=== PATIENT | male | born 1980 | race Caucasian/White ===

== ENCOUNTER 2022-01-14 22:50 | Emergency (ER) | payer MEDICARE, SELFPAY ==
[2022-01-14 22:51] VITALS: BP 157/108; PULSE 91; RESP 18; TEMP 35.8; O2SAT 98; BMI 36.3
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
[2022-01-15 00:18] VITALS: BP 147/103; PULSE 78; RESP 16; O2SAT 98
[2022-01-15 00:57] LABS: Anion Gap 8 (5-15); BUN 19 mg/dL (7-18); BUN/Creat Ratio 19.3 RATIO (10-20); Calcium,Total 8.7 mg/dL (8.5-10.1); Chloride 106 mmol/L (98-107); Creatinine, Serum 0.98 mg/dL (0.70-1.30); EST Glomerular Filtration Rate 89 mL/min (>60); Est Glom Filt Rate - Afr Amer 107 mL/min (>60); Estimated Creatinine Clearance 107.78 ml/min; Glucose 127 mg/dL (74-106); Potassium 3.8 mmol/L (3.5-5.1); Sodium Level 139 mmol/L (136-145)
[2022-01-15] MEDS: Lisinopril 20 MG Tablet PO (01:26)
[2022-01-15 01:35] VITALS: BP 143/97; PULSE 73; RESP 16; O2SAT 98
== END 2022-01-15 01:38 | disposition home or self-care (01) ==
PROVIDERS: Emergency Provider Emergency Medicine; Visit Provider Emergency Medicine
DX: R03.0 Elevated blood-pressure reading, without diagnosis of hypertension (principal); R73.9 Hyperglycemia, unspecified; Z79.899 Other long term (current) drug therapy
CPT/HCPCS: 80048; 99283

== ENCOUNTER 2022-04-14 22:10 | Emergency (ER) | payer MEDICARE, SELFPAY ==
[2022-04-14 22:11] VITALS: BP 179/116; PULSE 87; RESP 16; TEMP 36.7; O2SAT 97; BMI 37.4
[2022-04-14 23:05] VITALS: BP 155/100
[2022-04-14] MEDS: cloNIDine HCl 0.1 MG Tablet 0.2 MG PO (23:37)
[2022-04-15 00:41] VITALS: BP 152/99; PULSE 75; RESP 15; O2SAT 97
--- NOTE | 2022-04-15 00:41 | EDS_ITS ---
HPI History of Present Illness Chief Complaint: Hypertension Informant: patient Narrative Narrative: Patient presents with his blood pressure up again. He states when his blood pressure goes up he will get some pressure in the head. He states he really does not get dizziness that is really just the blood pressure and pressure feeling in his head. He states sometimes he almost feels short of breath. But he has been exercising regularly. He states if his blood pressure is up and he feels short of breath he can go jog on the treadmill and that actually resolves his symptoms. He does not get chest pain. I find out that he was on amlodipine. But it sounds like he would take it and then stop intermittently because he does not like being on meds. This was increased from 5-10. It was still not controlling his symptoms. He was switched to lisinopril. 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 He also would take this for 3 4 5 days and then stop for couple days. He feels he needs to get on another medicine. He is not due to be back in [place] and see his primary physician until next weekend. He would like to start something pending that. At this time he feels good. But when his blood pressure goes way up he has problems. He states it has been up more recently because its been very stressful at work. He also does have anxiety for which she takes Prozac. This was increased from 20 to 40 mg a day. Patient has been trying to exercise more. He states when he exercise he actually feels very good. He has been trying to cut back on junk food. But it sounds like he also has not been taking blood pressure medicines daily consistently. [facility] Medical History HTN (hypertension) Home Medications lisinopril 20 mg tablet 20 mg PO DAILY #30 tabs 01/15/22 [Rx Last Taken Unknown] valsartan 40 mg tablet 40 mg PO BID #60 tabs 04/15/22 [Rx Last Taken Unknown] Allergy/AdvReac Type Severity Reaction Status Date / Time No Known Allergies Allergy Verified 04/14/22 22:11 Social History Smoking Status: Never smoker ROS ROS ED Constitutional Constitutional ED: Denies chills or fever(s) Eyes Eyes: Denies blurry vision or change in vision ENT ENT ED: Denies rhinorrhea or sore throat Cardiovascular Cardiovascular: Denies chest pain, palpitations or racing heartbeat Respiratory/Chest Respiratory/Chest: Reports dyspnea; Denies cough Gastrointestinal Gastrointestinal: Denies abdominal pain, nausea or vomiting Genitourinary Genitourinary ED: Denies dysuria Musculoskeletal Musculoskeletal: Denies arthralgias, back pain or myalgias Neurologic Neurologic: Reports headache(s); Denies paresthesias or weakness Endocrine Endocrinology: Denies polydipsia or polyuria Hematologic/Lymphatic Hematologic/Lymphatic: Denies easy bleeding or easy bruising Allergic/Immunologic Allergic/Immunologic ED: Denies urticaria EXAM Physical Exam Const Vital Signs: 04/14/22 22:11 04/14/22 22:20 04/14/22 23:05 Temperature 98.1 F Temperature Source Temporal Pulse Rate 87 Respiratory Rate 16 Respiratory Effort Normal Respiratory Pattern Normal Blood Pressure 179/116 H 155/100 H Blood Pressure Mean 137 118 Pulse Ox 97 Oxygen Delivery Method Room Air Positive well nourished General Appearance ED: NAD HEENT Reports moist mucous membranes Eyes Eyes Narrative: Single eye due to prior trauma General Eye ED: Negative for scleral icterus Chest Wall inspection of chest normal Resp normal respiratory effort and clear to auscultation bilaterally Cardio regular rate, regular rhythm and no murmurs Rhythm: Negative for abnormal rhythm GI normal to inspection, nondistended, normoactive bowel sounds and non-tender Back/Spine no CVA tenderness Extremity General Extremety ED: Negative for tenderness Neuro oriented x3 and no sensory deficits noted Sensorium / Orientation: Negative for orientation impaired, lethargic or stuporous Motor Exam: strength 5/5 throughout Psych mental status grossly normal Skin no rashes or lesions noted MDM MDM MDM Narrative Medical decision making narrative: I reviewed the patient's prior labs. He is having the exact same symptoms he always gets with elevated blood pressure. His blood pressure is up a bit today. Without treatment he came down a bit. We will provide some therapy here. But he is safe to go home with this level. He is asymptomatic. I did a lot of looking online. He got a slight dry cough he now states with lisinopril. It also cause sun sensitivity as the class can. Calcium channel blockers have not worked for him. I do not think he would likely tolerate beta-blockers due to his age and activity. 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 We will try an ARB. Valsartan is 1 that has not been associated with sun sensitivity so we will try that. I explained that the initial starting dose will likely not be enough for him. He will likely need to increase this. Its full effect can take up to 2 weeks to be found but it should have some effect within days. If its not working well a small dose of a diuretic may be added with significant benefit. He will see his private physician in [place] hopefully within the next 1 to 2 weeks Discharge Plan Triage Chief Complaint: Hypertension ED Provider: Tito Bedoya Dx/Rx/DC Orders Clinical Impression: Hypertension Instructions: ED High Blood Pressure Hypertension Prescriptions: New valsartan 40 mg tablet 40 mg PO BID Qty: 60 0RF No Action lisinopril 20 mg tablet 20 mg PO DAILY Qty: 30 0RF Primary Care Provider: Care Physician,No Primary Referrals: Care Physician,No Primary [Primary Care Provider] - Activity Restrictions/Additional Instructions: Follow-up with your primary physician in [place] when you get back. Disposition Disposition: Home, Self Care
[2022-04-15] MEDS: Losartan Potassium 50 MG Tablet PO (00:51)
== END 2022-04-15 00:54 | disposition home or self-care (01) ==
PROVIDERS: Emergency Provider Emergency Medicine; Visit Provider Emergency Medicine
DX: I10 Essential (primary) hypertension (principal); F41.9 Anxiety disorder, unspecified
CPT/HCPCS: 99283